=== PATIENT | male | born 1975 | race Caucasian/White ===

== ENCOUNTER 2018-12-08 04:48 | Emergency (ER) | payer BC, OTHER ==
[~2018-12-08] VITALS: Ht 180.3 cm; Wt 91.4 kg
[2018-12-08 04:51] VITALS: Ht 180.3 cm; Wt 91.4 kg
[2018-12-08] MEDS ORDERED: ALBUTEROL 0.083% (NEB) 2.5 MG/3 ML AMP NEB STA (05:14)
[2018-12-08] MEDS ORDERED: IPRATROPIUM (NEB) 0.5 MG/2.5 ML AMP NEB STA (05:14)
[2018-12-08] MEDS ORDERED: LORAZEPAM 0.5 MG TAB PO ONE (05:30)
--- NOTE | 2018-12-08 05:39 | ERD ---
ER Documentation Chief Complaint Chief Complaint sob/cp, states got exposed to mixture of etoh and bleach around 2100 HPI 43-year-old male with no reported past medical history who presents with complaint of shortness of breath. 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 Shortly after doing this he began to have symptoms of shortness of breath after noticing some fumes and smell. He otherwise denies chest pain, wheezing, dyspnea on exertion, throat pain, headache, dizziness, loss of consciousness, nausea, vomiting, diarrhea, abdominal pain. At time of examination patient is nontoxic-appearing, slightly anxious but otherwise with reassuring vital signs and reassuring examination. ROS All systems reviewed and are negative except as per history of present illness. Allergies Allergies: Coded Allergies: No Known Drug Allergies (Verified Allergy, Unknown, 12/08/18) PMhx/Soc Medical and Surgical Hx: pt denies Surgical Hx History of Surgery: No Anesthesia Reaction: No Hx Neurological Disorder: No Hx Respiratory Disorders: No Hx Cardiac Disorders: No Hx Psychiatric Problems: No Hx Miscellaneous Medical Probl: Yes (Hypothyroidism) Hx Alcohol Use: Yes (Social) Hx Substance Use: Yes (Marijuana edibles) Hx Tobacco Use: No Smoking Status: Never smoker FmHx Family History: No diabetes, No coronary disease, No other Physical Exam Vitals Vital Signs Date Temp Pulse Resp B/P (MAP) Pulse Ox O2 O2 Flow FiO2 Time Delivery Rate 12/08/18 98.8 88 20 127/74 99 Room Air 06:00 (91) 12/08/18 91 24 92 21 05:29 12/08/18 10 05:25 12/08/18 98.9 94 20 131/82 92 04:51 (98) Physical Exam Const: No acute distress, slightly anxious Head: Atraumatic Eyes: Normal Conjunctiva ENT: Normal External Ears, Nose and Mouth. Neck: Full range of motion. No meningismus. Resp: Clear to auscultation bilaterally, no wheezing or stridor Cardio: Regular rate and rhythm, no murmurs Abd: Soft, non tender, non distended. Normal bowel sounds Skin: No petechiae or rashes Back: No midline or flank tenderness Ext: No cyanosis, or edema Neur: Awake and alert Psych: Normal Mood and Affect Results 24 hrs Current Medications Medications Dose Sig/Krunal Start Time Status Last (Trade) Ordered Route PRN Stop Time Admin Dose Reason Admin Albuterol 5 mg ONCE STAT 12/08/18 DC 12/08/18 (Proventil NEB 05:14 05:28 0.083% (Neb)) 12/08/18 05:18 Ipratropium 1.5 mg ONCE STAT 12/08/18 DC 12/08/18 [place] NEB 05:14 05:28 (Atrovent 12/08/18 05:18 0.02% (Neb)) Lorazepam 0.5 mg ONCE ONCE 12/08/18 DC 12/08/18 (Ativan) PO 05:30 05:25 12/08/18 05:31 Procedures/MDM 43-year-old male who presents with complaint of shortness of breath after exposure to bleach and rubbing alcohol. I have low suspicion for acute process such as chemical pneumonitis, impending airway compromise, life-threatening toxidrome warrant further emergent care or work-up. Patient has a reassuring examination. ED course: Albuterol and ipratropium, oxygen EKG reviewed by myself and attending physician, no overt evidence of contiguous ST segment elevations, low suspicion for acute CO. No overt tachy- or bradydysrhythmias. Low suspicion for WPW, long QT, HOCM, Brugada after EKG review. Reassessment: Following treatment patient with improvement in symptoms, stable examination. Poison control service called. Agree with treatment plan of supportive care as above. Given time from initial exposure patient is out of danger zone for acute process leading to clinical decompensation. DISPOSITION PLAN: We discussed follow up with the patient's primary care doctor within 24 to 48 hours. Patient counseled regarding my diagnostic impression and care plan. Prior to discharge all questions answered. Pt agrees with treatment plan and understands strict return precautions. Precautionary instructions provided including instructions to return to the ER if not improving or for any worsening or changing symptoms or concerns. Disclaimer: Inadvertent spelling and grammatical errors are likely due to EHR/dictation software use and do not reflect on the overall quality of patient care. Also, please note that the electronic time recorded on this note does not necessarily reflect the actual time of the patient encounter. Departure Diagnosis: Primary Impression: Exposure to chemical inhalation Additional Impression: Shortness of breath Condition: Stable Patient Instructions: Chemical Inhalation Referrals: COMM[facility]ITY [facility]IN[facility] YOU HAVE RECEIVED A MEDICAL SCREENING EXAM AND THE RESULTS INDICATE THAT YOU DO NOT HAVE A CONDITION THAT REQUIRES URGENT TREATMENT IN THE EMERGENCY DEPARTMENT. FURTHER EVALUATION AND TREATMENT OF YOUR CONDITION CAN WAIT UNTIL YOU ARE SEEN IN YOUR DOCTORS OFFICE WITHIN THE NEXT 1-2 DAYS. IT IS YOUR RESPONSIBILITY TO MAKE AN APPOINTMENT FOR FOLOW-UP CARE. IF YOU HAVE A PRIMARY DOCTOR --you should call your primary doctor and schedule an appointment IF YOU DO NOT HAVE A PRIMARY DOCTOR YOU CAN CALL OUR PHYSICIAN REFERRAL HOTLINE AT IF YOU CAN NOT AFFORD TO SEE A PHYSICIAN YOU CAN CHOSE FROM THE FOLLOWING [facility] [address] [facility]. [facility] [address] [facility] [facility] [address] [facility] [address] [facility] [address] [facility]. [facility] [address] [facility]. [facility]. [address] Additional Instructions: Call your primary care doctor TOMORROW for an appointment during the next 2-3 days.See the doctor sooner or return here if your condition worsens before your appointment time. CARLITOS SIMON PA-C Dec 08, 2018 05:39
[2018-12-08 06:00] VITALS: BP 127/74; PULSE 88; RESP 20
== END 2018-12-08 06:00 | disposition home or self-care (01) ==
LOC: FTE 04:48
DX: T59.891A Toxic effect of other specified gases, fumes and vapors, accidental (unintentional), initial encounter (principal); E03.9 Hypothyroidism, unspecified; R06.02 Shortness of breath
CPT/HCPCS: 93005; 94644